=== PATIENT | male | born 1950 | race Caucasian/White ===

== ENCOUNTER 2017-05-17 16:46 | Emergency (ER) | payer MEDICARE, OTHER ==
[~2017-05-17] VITALS: Ht 170.2 cm; Wt 77.2 kg
[~2017-05-17 16:46] MED LIST: MEVA40TA PO; MICA40TA2 PO; TAB-TAB PO; ZOFR4TAB3 SL
[2017-05-17] MEDS ORDERED: IOHEXOL 350 MG/ML 10 ML VIAL (for RAD DIAG) IVCONTRAST ONE (16:47)
[2017-05-17 17:00] VITALS: BP 175/96; PULSE 58; RESP 18; TEMP 98.1; O2SAT 99
[2017-05-17 17:25] VITALS: O2SAT 97
[2017-05-17] MEDS ORDERED: TAMS5CAP PO (17:40)
[2017-05-17] MEDS ORDERED: LOVA40TA PO (17:40)
[2017-05-17] MEDS ORDERED: HYDROmorphone HCL PF 2 MG/ML VIAL IVS ONE ×2 (18:00→18:30)
[2017-05-17] MEDS: SOD PHOSPHATE/SOD BIPHOSPHATE (ADULT) ENEMA 133ML RECTAL ONE ×2 (18:09→18:15)
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
[2017-05-17 18:20] LABS: AUTOMATED NEUTROPHIL # 4.7 TH/MM3 (1.8-7.7); BASOPHIL % 0.5 % (0.0-2.0); EOSINOPHIL # 0.2 TH/MM3 (0-0.4); HEMATOCRIT 40.4 % (39.0-51.0); HEMOGLOBIN 14.2 GM/DL (13.0-17.0); LYMPHOCYTE # 1.7 TH/MM3 (1.0-4.8); MEAN CORPUSCULAR HEMOGLOBIN 33.2 PG (27.0-34.0); MEAN CORPUSCULAR HGB CONC 35.3 % (32.0-36.0); MEAN PLATELET VOLUME 7.3 FL (7.0-11.0); MONO % 12.4 % (0.0-8.0); MONOCYTE # 0.9 TH/MM3 (0-0.9); NEUT % 62.1 % (16.0-70.0); PLATELET COUNT 244 TH/MM3 (150-450); RED CELL DISTRIBUTION WIDTH 13.2 % (11.6-17.2); WHITE BLOOD COUNT 7.5 TH/MM3 (4.0-11.0)
[2017-05-17 18:27] LABS: BILIRUBIN, URINE NEG (NEG); BLOOD, URINE MOD (NEG); GLUCOSE,URINE NEG (NEG); KETONE, URINE NEG (NEG); NITRITE,URINE NEG (NEG); PH, URINE 5.5 (5.0-8.5); URINE COLOR LIGHT-YELLOW (YELLW/STRAW); URINE LEUKOCYTE ESTERASE LARGE (NEG)
[2017-05-17] MEDS ORDERED: SODIUM CHLOR 0.9% 1000 ML INJ 1,000 ML IV ONE (18:30)
[2017-05-17 18:38] LABS: ALBUMIN 3.4 GM/DL (3.4-5.0); AST (GOT) 22 U/L (15-37); BICARBONATE 30.4 MEQ/L (21.0-32.0); BLOOD UREA NITROGEN 7 MG/DL (7-18); CALCIUM 8.6 MG/DL (8.5-10.1); CHLORIDE 91 MEQ/L (98-107); CREATININE 0.77 MG/DL (0.60-1.30); GLOMERULAR FILTRATION RATE 101 ML/MIN (>89); GLUCOSE,RANDOM 80 MG/DL (74-106); LIPASE 161 U/L (73-393); SODIUM (NA) 128 MEQ/L (136-145)
[2017-05-17 18:39] LABS: ALT (GPT) 20 U/L (12-78)
[2017-05-17 18:40] VITALS: RESP 16
[2017-05-17 18:41] LABS: ALKALINE PHOSPHATASE 45 U/L (45-117); TOTAL BILIRUBIN ADULT 0.6 MG/DL (0.2-1.0); TOTAL PROTEIN 6.7 GM/DL (6.4-8.2)
--- NOTE | 2017-05-17 19:04 | RADRPT ---
EXAM DATE/TIME: 05/17/2017 18:17 [facility] COMPARISON: No previous studies available for comparison. INDICATIONS : Post transurethral prostate biopsy,now patient has severe lower abdomen pain. IV CONTRAST: 90 cc Omnipaque 350 (iohexol) IV ORAL CONTRAST: No oral contrast ingested. RADIATION DOSE: 10.56 CTDIvol (mGy) MEDICAL HISTORY : Seizures. Hypertension. Cardiovascular disease SURGICAL HISTORY : Hernia repair ENCOUNTER: Initial ACUITY: 1 day PAIN SCALE: 6/10 LOCATION: Bilateral lower quadrant Abdomen TECHNIQUE: Volumetric scanning of the pelvis was performed. Using automated exposure control and adjustment of t he mA and/or kV according to patient size, radiation dose was kept as low as reasonably achievable to obtain optimal diagnostic quality images. DICOM format image data is available electronically for review and comparison. FINDINGS: CT of the pelvis was performed with intravenous contrast and with rectal contrast. There is a modera te amount of free fluid in the pelvis measuring up to 1.9 cm. Fonseca catheter is present within a dec ompressed urinary bladder and there is some gas within the lumen of the bladder. The external margin s of the prostate are smooth. There is no leak of contrast extraluminally from the rectum. Multiple small sigmoid diverticula without radiographic evidence of diverticulitis. No evidence of free air in the pelvis. There is marked distention of the a loop of bowel in the mid abdomen measuring up to 8.6 cm. This is incompletely included in the [id number] of the examination, but probably represen ts small bowel. Osseous structures are osteopenic. Vertebroplasty cement in the L3 vertebral body. CONCLUSION: 1. Mild amount of free fluid in the pelvis. 2. No leak of rectal contrast. 3. Solitary prominent distended loop of small bowel in the midabdomen measuring up to 8.6 cm. Recomm end serial plain films to help discriminate between ileus versus obstruction. 4. Sigmoid diverticula without radiographic eminence of diverticulitis. The findings have been discussed with Dr. Hamilton Quiñones. Herrera Ramesh MD on May 17, 2017 at 18:51 Board Certified Radiologist. This report was verified electronically.
--- NOTE | 2017-05-17 19:22 | RADRPT ---
EXAM DATE/TIME: 05/17/2017 18:40 [facility] COMPARISON: No previous studies available for comparison. INDICATIONS : Evaluate for free air. Patient is post prostate biopsy at a surgery center. Severe lower abdomen pa in post op. MEDICAL HISTORY : Hypertension. Hypercholesterolemia. Hyperlipidemia. SURGICAL HISTORY : Hernia repair. ENCOUNTER: Initial ACUITY: 1 day PAIN SCORE: 8/10 LOCATION: Epigastric. FINDINGS: AP erect view of the chest is performed. There is no evidence of free air under the either hemidiaph ragm. The lungs are symmetrically aerated. The heart is normal size. CONCLUSION: No evidence of free air beneath either hemidiaphragm. Herrera Ramesh MD on May 17, 2017 at 19:19 Board Certified Radiologist. This report was verified electronically.
--- NOTE | 2017-05-17 19:42 | RADRPT ---
EXAM DATE/TIME: 05/17/2017 18:43 [facility] COMPARISON: No previous studies available for comparison. INDICATIONS : Evaluate for free air. Patient is post prostate biopsy at a surgery center. Severe lower abdomen pa in post op. MEDICAL HISTORY : Hypertension. Hypercholesterolemia. Hyperlipidemia. SURGICAL HISTORY : Hernia repair. ENCOUNTER: Initial ACUITY: 1 day PAIN SCORE: 8/10 LOCATION: Abdomen, lower quadrant. FINDINGS: Supine and erect view of the abdomen demonstrates no evidence of free air underneath the hemidiaphrag m. There is a solitary dilated loop of bowel in the mid and lower abdomen measuring 9.5 cm in width containing an air-fluid level, probably representing small bowel. The visualized lower lungs are ernst ar. Vertebroplasty cement is seen at 4 levels in the thoracolumbar region. CONCLUSION: 1. No evidence of free air. 2. Solitary distended loop of small bowel mid abdomen with air-fluid level suggesting either small jorge luis wel obstruction or localized ileus. Recommend serial films. Herrera Ramesh MD on May 17, 2017 at 19:37 Board Certified Radiologist. This report was verified electronically.
== END 2017-05-17 22:32 | disposition home or self-care (01) ==
LOC: NEPE 16:46
DX: R10.30 Lower abdominal pain, unspecified (principal); E78.5 Hyperlipidemia, unspecified; N40.0 Benign prostatic hyperplasia without lower urinary tract symptoms; Z79.899 Other long term (current) drug therapy; Z88.1 Allergy status to other antibiotic agents
CPT/HCPCS: 71010; 72193; 74020; 80053; 81001; 83690; 85025; 96374; 99285; J1170; J7030; Q9967

== ENCOUNTER 2017-07-23 01:33 | Emergency (ER) | payer MEDICARE, OTHER ==
[~2017-07-23 01:33] MED LIST changes: +LOVA40TA PO; -MEVA40TA PO; -MICA40TA2 PO; -TAB-TAB PO; +TAMS5CAP PO; -ZOFR4TAB3 SL
--- NOTE | 2017-07-23 02:59 | PD ---
HPI Chief Complaint: Allergic/Adverse Reaction Time Seen by Provider: 02:56 Travel History International Travel<30 days: No Contact w/Intl Traveler<30days: No History of Present Illness HPI Patient is a 66-year-old male presenting to the emergency department for evaluation of hives. Patient states that it started at around 2 PM this afternoon. He states that he is itchy, symptom onset was gradual, severity is moderate. There are no alleviating factors nor are there any exacerbating factors. Patient has been using topical Benadryl lotion with no improvement. He denies any shortness of breath, wheezing, fevers, dysphasia. Patient further denies any contact with new lotions, soaps, detergents, foods. He denies any foodborne allergies. PFSH Past Medical History Cardiac Catheterization: Yes High Cholesterol: Yes Cerebrovascular Accident: Yes (1987) Gout: Yes Hypertension: Yes Musculoskeletal: Yes Seizures: Yes (last one was 6 months related to etoh) Past Surgical History Abdominal Surgery: Yes (HERNIA REPAIR) Other Surgery: Yes Social History Alcohol Use: Yes (2-3 drinks daily ) Tobacco Use: No (quit a long time ago) Substance Use: No Allergies-Medications (Allergen,Severity, Reaction): Coded Allergies: ciprofloxacin (Verified Allergy, Unknown, 05/17/17) Reported Meds & Prescriptions Reported Meds & Active Scripts Active Reported Lovastatin 40 Mg Tab 40 Mg PO DAILY Flomax (Tamsulosin HCl) 0.4 Mg Cap 0.4 Mg PO HS Review of Systems Except as stated in HPI: all other systems reviewed are Neg Skin: Positive Rash, Positive Itching, Positive Hives Physical Exam Narrative GENERAL: Well-developed, well-nourished, alert male. Presenting in no acute distress. SKIN: Warm and dry. hives to arms, buttocks, back, legs, abdomen. HEAD: Atraumatic. Normocephalic. EYES: Pupils equal and round. No scleral icterus. No injection or drainage. ENT: No nasal bleeding or discharge. Mucous membranes pink and moist. NECK: Trachea midline. No JVD. CARDIOVASCULAR: Mildly tachycardic RESPIRATORY: No accessory muscle use. Clear to auscultation. Breath sounds equal bilaterally. GASTROINTESTINAL: Abdomen soft, non-tender, nondistended. Hepatic and splenic margins not palpable. MUSCULOSKELETAL: Extremities without clubbing, cyanosis, or edema. No obvious deformities. NEUROLOGICAL: Awake and alert. No obvious cranial nerve deficits. Motor grossly within normal limits. Five out of 5 muscle strength in the arms and legs. Normal speech. PSYCHIATRIC: Appropriate mood and affect; insight and judgment normal. Data Data Orders Orders Ed Discharge Order (07/23/17 03:51) MDM Medical Decision Making Medical Screen Exam Complete: Yes Emergency Medical Condition: Yes Differential Diagnosis Allergic reaction versus contact dermatitis versus anaphylaxis versus other Narrative Course Patient presented for evaluation of hives that started approximately 12 hours prior to arrival. Patient was mildly tachycardic on arrival likely secondary to the itching from the hives. His airway is patent, medications ordered and pending. Son is at bedside. Patient was reassessed approximately 1 hour after medication administration. He reports feeling better, he is no longer itchy. Patient's vital signs have improved, his heart rate is currently in the mid 60s and his pulse ox is 99% on room air. Patient was advised to return immediately for any new or worsening symptoms. Initial set of vital signs was assessed during [facility] downtime. Patient verbalized understanding of discharge instructions. Patient stable for discharge. Diagnosis Primary Impression: Hives of unknown origin Referrals: [facility] Primary Care Physician 2 days Patient Instructions: General Allergic Reaction (ED), General Instructions, Urticaria (ED) Additional Instructions: Take medications as directed Return to emergency department immediately for any new or worsening symptoms as discussed May take [id number] Benadryl as needed and as directed for itching Follow-up with your primary doctor Med/Other Pt SpecificInfo: Prescription(s) given Scripts Diphenhydramine (Diphenhydramine) 25 Mg Tab 50 MG PO Q6H Y for ITCHING AND/OR RASH for 7 Days, #56 TAB 0 Refills Prov: Sade Davalos 07/23/17 Ranitidine (Ranitidine) 150 Mg Tab 150 MG PO BID for Heartburn Management, #20 TAB 0 Refills Prov: Sade Davalos 07/23/17 Prednisone (Prednisone) 50 Mg Tab 50 MG PO DAILY for 5 Days, #5 TAB 0 Refills Prov: Sade Davalos 07/23/17 Disposition: 01 DISCHARGE HOME Condition: Stable Sade Davalos Jul 23, 2017 02:59
[2017-07-23] MEDS ORDERED: DIPH25TA2 PO (03:56)
[2017-07-23] MEDS ORDERED: RANI150T PO (03:56)
[2017-07-23] MEDS ORDERED: PRED50 PO (03:56)
[2017-07-23 03:59] VITALS: PULSE 69; RESP 16; O2SAT 97
== END 2017-07-23 04:06 | disposition home or self-care (01) ==
LOC: NEPD 01:33
DX: R68.89 Other general symptoms and signs (principal)

== ENCOUNTER 2017-07-23 02:53 | Emergency (ER) | payer MEDICARE, OTHER ==
[2017-07-23] MEDS ORDERED: DIPH25TA2 PO (03:56)
[2017-07-23] MEDS ORDERED: PRED50 PO (03:56)
[2017-07-23] MEDS ORDERED: RANI150T PO (03:56)
== END 2017-07-23 04:06 | disposition home or self-care (01) ==
LOC: NEPD 02:53
DX: L50.9 Urticaria, unspecified (principal); I10 Essential (primary) hypertension; E78.00 Pure hypercholesterolemia, unspecified; Z86.73 Personal history of transient ischemic attack (TIA), and cerebral infarction without residual deficits; Z88.8 Allergy status to other drugs, medicaments and biological substances; Z79.899 Other long term (current) drug therapy
CPT/HCPCS: 99283